=== PATIENT | female | born 1995 | race African-American/Black ===

== ENCOUNTER 2016-10-17 19:58 | Emergency (ER) | payer MEDICAID ==
[~2016-10-17] VITALS: Ht 167.6 cm; Wt 77.0 kg
[~2016-10-17 19:58] MED LIST: PNV1TABL7
[2016-10-18 02:49] VITALS: BP 120/79
== END 2016-10-18 02:52 | disposition home or self-care (01) ==
LOC: ER 19:58
DX: S30.0XXA Contusion of lower back and pelvis, initial encounter (principal); S76.012A Strain of muscle, fascia and tendon of left hip, initial encounter; S76.011A Strain of muscle, fascia and tendon of right hip, initial encounter; M25.562 Pain in left knee; V43.62XA Car passenger injured in collision with other type car in traffic accident, initial encounter; Y93.89 Activity, other specified; Y92.415 Exit ramp or entrance ramp of street or highway as the place of occurrence of the external cause; Z88.8 Allergy status to other drugs, medicaments and biological substances
CPT/HCPCS: 72100; 73521; 81025; 99284

== ENCOUNTER 2016-11-29 08:54 | Emergency (ER) | payer MEDICAID ==
[~2016-11-29] VITALS: Ht 170.2 cm; Wt 75.0 kg
[2016-11-29 10:12] VITALS: BP 105/66
[2016-11-29 10:20] LABS: CLARITY URINE TURBID (CLEAR); COLOR URINE YELLOW (YELLOW); GLUCOSE URINE NEGATIVE (NEGATIVE); KETONES URINE NEGATIVE (NEGATIVE); LEUKOCYTE ESTERASE URINE 3+ (NEGATIVE); NITRITE URINE NEGATIVE (NEGATIVE); OCCULT BLOOD URINE 2+ (NEGATIVE); PH URINE 6.5 (4.5-8.0); PROTEIN URINE 1+ (NEGATIVE); SPECIFIC GRAVITY URINE 1.013 (1.005-1.030)
[2016-11-29] MEDS ORDERED: CEFTRIAXONE SODIUM 250 MG/VIAL IM ONE (11:30)
[2016-11-29] MEDS ORDERED: LIDOCAINE HCL 1% 20ML VIAL (Pyxis) INJ INFIL ONE (11:45)
[2016-12-01 04:17] LABS: CHLAMYDIA TRACHOMATIS NAA Negative (Negative); NEISSERIA GONORRHOEAE NAA Negative (Negative)
== END 2016-11-29 12:20 | disposition home or self-care (01) ==
LOC: ER 09:22
DX: N73.9 Female pelvic inflammatory disease, unspecified (principal); F12.10 Cannabis abuse, uncomplicated; Z98.890 Other specified postprocedural states; Z88.8 Allergy status to other drugs, medicaments and biological substances
CPT/HCPCS: 81001; 81025; 87210; 87491; 87591; 96372; 99284; J0696; J3490; Z7610

== ENCOUNTER 2018-12-18 15:53 | Emergency (ER) | payer MEDICARE, MEDICAID ==
[~2018-12-18] VITALS: Ht 165.1 cm; Wt 80.0 kg
[2018-12-18 17:59] LABS: BASOPHILS % 0.6 % (0.0-2.0); EOSINOPHILS % 2.8 % (0.0-5.0); HEMATOCRIT. 35.7 % (36.0-48.0); HEMOGLOBIN. 11.9 g/dL (12.0-16.0); LYMPHOCYTES % 28.7 % (20.0-50.0); MEAN CORPUSCULAR HEMOGLOBIN 31.6 pg (28.0-32.0); MEAN CORPUSCULAR VOLUME 94.4 fL (81.0-99.0); MEAN PLATELET VOLUME 9.8 fl (7.4-10.4); MONOCYTES % 7.9 % (2.0-8.0); PLATELET 190 x1000/uL (130-400); RED BLOOD CELL COUNT 3.78 mill/uL (4.2-5.4); RED CELL DISTRIBUTION WIDTH 12.9 % (11.6-14.6)
[2018-12-18 18:02] LABS: CHLORIDE 107 mEq/L (98-107)
[2018-12-18 18:10] LABS: CLARITY URINE CLEAR (CLEAR); COLOR URINE YELLOW (YELLOW); KETONES URINE NEGATIVE (NEGATIVE); LEUKOCYTE ESTERASE URINE NEGATIVE (NEGATIVE); NITRITE URINE NEGATIVE (NEGATIVE); OCCULT BLOOD URINE NEGATIVE (NEGATIVE); PH URINE 6.5 (4.5-8.0); PROTEIN URINE NEGATIVE (NEGATIVE); SPECIFIC GRAVITY URINE 1.011 (1.005-1.030); UROBILINOGEN URINE 0.2 E.U./dL (0.2-1.0)
[2018-12-18 18:25] LABS: B-HCG QUANTITATIVE 40041 mIU/mL (<3)
[2018-12-18 19:06] VITALS: BP 98/60
== END 2018-12-19 06:14 | disposition home or self-care (01) ==
LOC: ER 15:53
DX: O20.0 Threatened abortion (principal); O26.891 Other specified pregnancy related conditions, first trimester; N93.9 Abnormal uterine and vaginal bleeding, unspecified; Z3A.01 Less than 8 weeks gestation of pregnancy; Z88.8 Allergy status to other drugs, medicaments and biological substances
CPT/HCPCS: 36415; 76801; 81003; 82962; 84702; 86850; 86900; 99284

== ENCOUNTER 2019-02-07 03:53 | Emergency (ER) | payer MEDICARE, MEDICAID ==
[~2019-02-07] VITALS: Ht 165.1 cm; Wt 79.0 kg
[2019-02-07] MEDS ORDERED: DIPHENHYDRAMINE 25MG CAPSULE PO ONE (05:15)
[2019-02-07 05:37] LABS: BASOPHILS % 0.4 % (0.0-2.0); EOSINOPHILS % 2.4 % (0.0-5.0); HEMATOCRIT. 33.5 % (36.0-48.0); HEMOGLOBIN. 11.9 g/dL (12.0-16.0); LYMPHOCYTES % 24.9 % (20.0-50.0); MEAN CORPUSCULAR HEMOGLOBIN 32.6 pg (28.0-32.0); MEAN CORPUSCULAR VOLUME 91.8 fL (81.0-99.0); MEAN PLATELET VOLUME 9.7 fl (7.4-10.4); MONOCYTES % 6.4 % (2.0-8.0); NEUTROPHILS % 65.9 % (40.0-76.0); PLATELET 187 x1000/uL (130-400); RED BLOOD CELL COUNT 3.65 mill/uL (4.2-5.4); RED CELL DISTRIBUTION WIDTH 12.3 % (11.6-14.6)
[2019-02-07 05:42] LABS: CLARITY URINE CLEAR (CLEAR); COLOR URINE YELLOW (YELLOW); KETONES URINE 2+ (NEGATIVE); LEUKOCYTE ESTERASE URINE NEGATIVE (NEGATIVE); NITRITE URINE NEGATIVE (NEGATIVE); OCCULT BLOOD URINE NEGATIVE (NEGATIVE); PROTEIN URINE NEGATIVE (NEGATIVE)
[2019-02-07 06:07] LABS: CHLORIDE 104 mEq/L (98-107)
[2019-02-07 06:46] VITALS: BP 109/59
[2019-02-07] MEDS ORDERED: POTASSIUM CHLORIDE 20MEQ TABLET SR PO ONE (07:00)
== END 2019-02-07 07:16 | disposition home or self-care (01) ==
LOC: ER 03:53
DX: O26.892 Other specified pregnancy related conditions, second trimester (principal); L29.9 Pruritus, unspecified; E11.9 Type 2 diabetes mellitus without complications; Z3A.14 14 weeks gestation of pregnancy; Z88.8 Allergy status to other drugs, medicaments and biological substances; Z98.890 Other specified postprocedural states
CPT/HCPCS: 36415; 76801; 80053; 81003; 81025; 85025; 99283; Q0163

== ENCOUNTER 2019-02-24 18:39 | Emergency (ER) | payer MEDICARE ==
[~2019-02-24] VITALS: Ht 167.6 cm; Wt 86.0 kg
[2019-02-24 18:42] VITALS: BP 122/64
[2019-07-24] MEDS ORDERED: IBUP-2030 PO (03:53)
== END 2019-02-25 01:12 | disposition left against medical advice (07) ==
LOC: ER 18:39
DX: Z53.21 Procedure and treatment not carried out due to patient leaving prior to being seen by health care provider (principal)

== ENCOUNTER 2019-03-03 04:15 | Emergency (ER) | payer MEDICARE, MEDICAID ==
[~2019-03-03] VITALS: Ht 165.1 cm; Wt 82.0 kg
[2019-03-03 04:31] VITALS: BP 118/76
== END 2019-03-03 07:06 | disposition left against medical advice (07) ==
LOC: ER 04:15
DX: O46.92 Antepartum hemorrhage, unspecified, second trimester (principal); Z53.21 Procedure and treatment not carried out due to patient leaving prior to being seen by health care provider; Z3A.18 18 weeks gestation of pregnancy

== ENCOUNTER 2019-04-13 11:38 | Observation (INO) | payer MEDICARE, MEDICAID ==
[~2019-04-13] VITALS: Ht 165.1 cm; Wt 86.2 kg
[2019-04-13] MEDS ORDERED: RHO(D) IMMUNE GLOBULIN 300 MCG/SYR IM ONE (13:45)
[2019-04-13 14:21] LABS: CLARITY URINE CLOUDY (CLEAR); COLOR URINE YELLOW (YELLOW); KETONES URINE NEGATIVE (NEGATIVE); LEUKOCYTE ESTERASE URINE 2+ (NEGATIVE); NITRITE URINE NEGATIVE (NEGATIVE); OCCULT BLOOD URINE NEGATIVE (NEGATIVE); PH URINE 7.5 (4.5-8.0); PROTEIN URINE NEGATIVE (NEGATIVE); SPECIFIC GRAVITY URINE 1.006 (1.005-1.030); UROBILINOGEN URINE 0.2 E.U./dL (0.2-1.0)
[2019-04-13 14:27] LABS: BASOPHILS % 0.3 % (0.0-2.0); EOSINOPHILS % 1.5 % (0.0-5.0); HEMATOCRIT. 32.2 % (36.0-48.0); LYMPHOCYTES % 22.9 % (20.0-50.0); MEAN CORPUSCULAR HEMOGLOBIN 32.3 pg (28.0-32.0); MEAN CORPUSCULAR VOLUME 94.3 fL (81.0-99.0); MEAN PLATELET VOLUME 10.2 fl (7.4-10.4); MONOCYTES % 6.3 % (2.0-8.0); PLATELET 160 x1000/uL (130-400); RED BLOOD CELL COUNT 3.41 mill/uL (4.2-5.4); RED CELL DISTRIBUTION WIDTH 13.4 % (11.6-14.6)
[2019-04-13 14:33] LABS: INR 0.9; PARTIAL THROMBOPLASTIN TIME 25.4 sec (23.4-31.0); PROTHROMBIN TIME 9.4 sec (9.6-11.0)
[2019-04-13 14:37] LABS: *BARBITURATES SCREEN URINE NEGATIVE (NEGATIVE)
[2019-04-13 14:38] LABS: *BENZODIAZEPINES SCREEN URINE NEGATIVE (NEGATIVE); *COCAINE SCREEN URINE NEGATIVE (NEGATIVE); CANNABINOID URINE SCREEN NEGATIVE (NEGATIVE); METHADONE URINE SCREEN NEGATIVE (NEGATIVE); OPIATES URINE SCREEN NEGATIVE (NEGATIVE); PHENCYCLIDINE URINE SCREEN NEGATIVE (NEGATIVE)
[2019-04-13 14:49] LABS: *AMPHETAMINES SCREEN URINE PRESUMTIVE POSITIVE (NEGATIVE)
[2019-04-13] MEDS ORDERED: FLUCONAZOLE 150MG TABLET PO SCH (15:00)
[2019-04-13 15:07] LABS: HEPATITIS B SURFACE ANTIGEN NEGATIVE
== END 2019-04-13 15:45 | disposition home or self-care (01) ==
LOC: 8 EST LDRP 11:38
PROVIDERS: ADMIT Obstetrics & Gynecology; ATTEND Obstetrics & Gynecology
DX: O36.8120 Decreased fetal movements, second trimester, not applicable or unspecified (principal); Z3A.25 25 weeks gestation of pregnancy
CPT/HCPCS: 36415; 76805; 80305; 80307; 81003; 85025; 85610; 85730; 86592; 86703; 86762; 86850; 86900; 86901; 87070; 87340; 99281; G0378; J8499

== ENCOUNTER 2019-07-02 21:56 | Observation (INO) | payer MEDICARE, MEDICAID ==
[~2019-07-02] VITALS: Ht 165.1 cm; Wt 96.2 kg
[2019-07-02] MEDS ORDERED: FURO20TA4 MT (23:03)
[2019-07-02] MEDS ORDERED: DIPH25CA83 PO (23:03)
== END 2019-07-02 23:58 | disposition home or self-care (01) ==
LOC: INTOOBSV 21:56 → 8 EST LDRP 21:56
PROVIDERS: ADMIT Obstetrics & Gynecology; ATTEND Obstetrics & Gynecology
DX: O62.9 Abnormality of forces of labor, unspecified (principal); O60.03 Preterm labor without delivery, third trimester; Z3A.35 35 weeks gestation of pregnancy
CPT/HCPCS: 99281; G0378

== ENCOUNTER 2019-07-05 05:38 | Observation (INO) | payer MEDICARE, MEDICAID ==
[~2019-07-05] VITALS: Ht 165.1 cm; Wt 113.4 kg
[~2019-07-05 05:38] MED LIST changes: +DIPH25CA83 PO
[2019-07-05] MEDS ORDERED: TERBUTALINE SULFATE 1MG/ML VIAL SUBCUT PRN (06:45)
[2019-07-05] MEDS ORDERED: LACTATED RINGERS 1,000 ML IV SCH (06:45)
[2019-07-05 07:28] LABS: *BARBITURATES SCREEN URINE NEGATIVE (NEGATIVE)
[2019-07-05 07:29] LABS: *BENZODIAZEPINES SCREEN URINE NEGATIVE (NEGATIVE); *COCAINE SCREEN URINE NEGATIVE (NEGATIVE); CANNABINOID URINE SCREEN NEGATIVE (NEGATIVE); METHADONE URINE SCREEN NEGATIVE (NEGATIVE); OPIATES URINE SCREEN NEGATIVE (NEGATIVE); PHENCYCLIDINE URINE SCREEN NEGATIVE (NEGATIVE)
[2019-07-05 07:32] LABS: *AMPHETAMINES SCREEN URINE PRESUMTIVE POSITIVE (NEGATIVE)
[2019-07-09 13:06] LABS: AMPHETAMINE CONF URINE Positive (.)
== END 2019-07-05 08:04 | disposition home or self-care (01) ==
LOC: 8 EST LDRP 05:38 → UNDOADMOB 05:38
PROVIDERS: ADMIT Obstetrics & Gynecology; ATTEND Obstetrics & Gynecology
DX: O62.9 Abnormality of forces of labor, unspecified (principal); Z3A.35 35 weeks gestation of pregnancy; Z79.899 Other long term (current) drug therapy
CPT/HCPCS: 80305; 80307; 96372; 99281; G0378; J3105; 96360

== ENCOUNTER 2019-07-22 09:13 | Inpatient (IN) | payer MEDICARE, MEDICAID ==
[~2019-07-22] VITALS: Ht 165.1 cm; Wt 95.7 kg
[2019-07-22] MEDS ORDERED: LIDOCAINE HCL 2%/EPINEPHRINE 1:100,000 20 ML VIAL INFIL ONE (10:00)
[2019-07-22] MEDS ORDERED: LIDOCAINE HCL 1% 20ML VIAL (Pyxis) INJ INFIL SCH (12:00)
[2019-07-22] MEDS ORDERED: CARBOPROST TROMETHAMINE 250 MCG/ML AMPUL IM PRN (12:00)
[2019-07-22] MEDS ORDERED: NALOXONE HCL 0.4 MG/ML 1ML VIAL IM PRN (12:00)
[2019-07-22] MEDS ORDERED: METHYLERGONOVINE MALEATE 0.2 MG/ML IM PRN (12:00)
[2019-07-22] MEDS ORDERED: LACTATED RINGERS 1,000 ML IV SCH (13:00)
[2019-07-22] MEDS ORDERED: DEXT 5%/LR + PITOCIN 20UNITS/L 1,000 ML IV SCH ×2 (13:00→20:19)
[2019-07-22] MEDS: MISOPROSTOL 100MCG TABLET VG PRN ×2 (13:14→17:03)
[2019-07-22 15:21] LABS: INR 0.9; PARTIAL THROMBOPLASTIN TIME 28.7 sec (23.4-31.0); PROTHROMBIN TIME 9.4 sec (9.6-11.0)
[2019-07-22] MEDS ORDERED: BUTORPHANOL TARTRATE 2 MG/ML VIAL IM PRN (16:45)
[2019-07-22 17:08] LABS: BASOPHILS % 0.4 % (0.0-2.0); HEMATOCRIT. 34.7 % (36.0-48.0); HEMOGLOBIN. 11.7 g/dL (12.0-16.0); LYMPHOCYTES % 23.7 % (20.0-50.0); MEAN CORPUSCULAR HEMOGLOBIN 30.6 pg (28.0-32.0); MEAN CORPUSCULAR VOLUME 90.5 fL (81.0-99.0); MEAN PLATELET VOLUME 10.6 fl (7.4-10.4); MONOCYTES % 7.7 % (2.0-8.0); NEUTROPHILS % 67.2 % (40.0-76.0); PLATELET 195 x1000/uL (130-400); RED BLOOD CELL COUNT 3.83 mill/uL (4.2-5.4); RED CELL DISTRIBUTION WIDTH 14.2 % (11.6-14.6)
[2019-07-22 17:58] LABS: CLARITY URINE CLOUDY (CLEAR); COLOR URINE YELLOW (YELLOW); KETONES URINE TRACE (NEGATIVE); LEUKOCYTE ESTERASE URINE 2+ (NEGATIVE); NITRITE URINE NEGATIVE (NEGATIVE); OCCULT BLOOD URINE NEGATIVE (NEGATIVE); PROTEIN URINE TRACE (NEGATIVE); SPECIFIC GRAVITY URINE 1.019 (1.005-1.030)
[2019-07-22] MEDS ORDERED: ROPIVACAINE HCL/PF EPIDURAL 200 ML EPI SCH (18:30)
[2019-07-22 18:44] LABS: HEPATITIS B SURFACE ANTIGEN NEGATIVE
[2019-07-22 18:46] LABS: *AMPHETAMINES SCREEN URINE NEGATIVE (NEGATIVE); *BARBITURATES SCREEN URINE NEGATIVE (NEGATIVE); *BENZODIAZEPINES SCREEN URINE NEGATIVE (NEGATIVE); *COCAINE SCREEN URINE NEGATIVE (NEGATIVE)
[2019-07-22 18:47] LABS: CANNABINOID URINE SCREEN NEGATIVE (NEGATIVE); METHADONE URINE SCREEN NEGATIVE (NEGATIVE); OPIATES URINE SCREEN NEGATIVE (NEGATIVE); PHENCYCLIDINE URINE SCREEN NEGATIVE (NEGATIVE)
[2019-07-22] MEDS ORDERED: IBUPROFEN 400MG TABLET PO PRN (20:30)
[2019-07-22] MEDS ORDERED: BISACODYL 10MG SUPP PR PRN (20:30)
[2019-07-22] MEDS ORDERED: RHO(D) IMMUNE GLOBULIN 300 MCG/SYR IM PRN (20:30)
[2019-07-22] MEDS ORDERED: IBUPROFEN 800MG TABLET PO PRN (20:30)
[2019-07-22] MEDS ORDERED: ACETAMINOPHEN WITH CODEINE 300/30MG TABLET PO PRN (20:30)
[2019-07-22] MEDS ORDERED: HEMORRHOIDAL SUPP PR PRN (20:30)
[2019-07-22] MEDS ORDERED: DIPHENHYDRAMINE 25MG CAPSULE PO PRN (20:30)
[2019-07-22] MEDS ORDERED: BENZOCAINE/LANOLIN/ALOE VERA SPRAY TOP PRN (20:30)
[2019-07-22] MEDS ORDERED: GLYCERIN/WITCH HAZEL LEAF MEDICATED PAD TOP PRN (20:30)
[2019-07-22] MEDS ORDERED: LANOLIN OINT 7GM TUBE TOP PRN (20:30)
[2019-07-22] MEDS ORDERED: DOCUSATE SODIUM 100MG CAPSULE PO SCH (21:00)
[2019-07-22 22:00] VITALS: BP 115/82
[2019-07-23 04:00] VITALS: BP 104/66
[2019-07-23] MEDS: FERROUS SULFATE 325MG TABLET PO SCH ×3 (07:30→17:30)
[2019-07-23 08:00] VITALS: BP 125/74
[2019-07-23] MEDS: PRENATAL VIT/FE FUMARATE/FA TABLET PO SCH (08:19)
[2019-07-23] MEDS: MAGNESIUM/ALUMINUM HYDROXIDE/SIMETHICONE 30ML UDC PO SCH ×3 (08:19→20:58)
[2019-07-23 16:00] VITALS: BP 111/81
[2019-07-23 18:29] LABS: BASOPHILS % 0.8 % (0.0-2.0); EOSINOPHILS % 1.2 % (0.0-5.0); HEMATOCRIT. 35.5 % (36.0-48.0); HEMOGLOBIN. 12.3 g/dL (12.0-16.0); LYMPHOCYTES % 25.8 % (20.0-50.0); MEAN CORPUSCULAR HEMOGLOBIN 31.3 pg (28.0-32.0); MEAN CORPUSCULAR VOLUME 90.5 fL (81.0-99.0); MEAN PLATELET VOLUME 10.3 fl (7.4-10.4); MONOCYTES % 6.5 % (2.0-8.0); NEUTROPHILS % 65.7 % (40.0-76.0); PLATELET 209 x1000/uL (130-400); RED BLOOD CELL COUNT 3.92 mill/uL (4.2-5.4); RED CELL DISTRIBUTION WIDTH 14.7 % (11.6-14.6)
[2019-07-23 19:30] VITALS: BP 111/80
[2019-07-24] VITALS: BP 111/83
[2019-07-24] MEDS ORDERED: IBUP-2030 PO (03:53)
[2019-07-24 04:00] VITALS: BP 118/76
[2019-07-24] MEDS: MAGNESIUM/ALUMINUM HYDROXIDE/SIMETHICONE 30ML UDC PO SCH (07:30)
[2019-07-24] MEDS: FERROUS SULFATE 325MG TABLET PO SCH (07:30)
[2019-07-24 08:00] VITALS: BP 108/73
[2019-07-24] MEDS: PRENATAL VIT/FE FUMARATE/FA TABLET PO SCH (09:00)
== END 2019-07-24 10:45 | disposition home or self-care (01) | DRG 806 ==
LOC: OBSVTOIN 09:13 → 8 EST LDRP 09:13 → 8EST 23:41
PROVIDERS: ADMIT Obstetrics & Gynecology; ATTEND Obstetrics & Gynecology
PROC: 10E0XZZ Delivery of Products of Conception, External Approach (ICD-10-PCS; principal; 2019-07-22)
DX: O99.02 Anemia complicating childbirth (principal); D62 Acute posthemorrhagic anemia; Z37.0 Single live birth; Z91.018 Allergy to other foods; Z88.1 Allergy status to other antibiotic agents; Z3A.39 39 weeks gestation of pregnancy
CPT/HCPCS: 36415; 76805; 80305; 81003; 85025; 86592; 86703; 86762; 86850; 86900; 87340; 99281; J0595; J2590; J2795; J3490; J7120

== ENCOUNTER 2022-10-02 10:33 | Emergency (ER) | payer MEDICAID, MEDICARE, OTHER ==
[~2022-10-02] VITALS: Ht 170.2 cm; Wt 64.0 kg
[~2022-10-02 10:33] MED LIST changes: -DIPH25CA83 PO; +IBUP-2030 PO; -PNV1TABL7
[2022-10-02 10:35] VITALS: O2SAT 98
[2022-10-02] MEDS ORDERED: ONDANSETRON HCL 4MG/2ML INJ IV STA (11:56)
[2022-10-02] MEDS ORDERED: MORPHINE SULFATE 4 MG/ML CPJ (NOT FOR IM USE) IV ONE (12:00)
[2022-10-02] MEDS ORDERED: KETOROLAC 60MG/2ML VIAL IM ONE (12:00)
[2022-10-02 12:43] LABS: BASOPHILS % 0.1 % (0.0-2.0); EOSINOPHILS % 2.2 % (0.0-5.0); HEMATOCRIT. 40.7 % (36.0-48.0); HEMOGLOBIN. 13.2 g/dL (12.0-16.0); LYMPHOCYTES % 16.5 % (20.0-50.0); MEAN CORPUSCULAR HEMOGLOBIN 30.1 pg (28.0-32.0); MEAN CORPUSCULAR HGB CONC 32.3 g/dL (31.0-37.0); MEAN CORPUSCULAR VOLUME 93.2 fL (81.0-99.0); MEAN PLATELET VOLUME 9.4 fl (7.4-10.4); MONOCYTES % 5.6 % (2.0-8.0); NEUTROPHILS % 75.6 % (40.0-76.0); PLATELET 285 x1000/uL (130-400); RED BLOOD CELL COUNT 4.37 mill/uL (4.2-5.4); RED CELL DISTRIBUTION WIDTH 13.9 % (11.6-14.6); WHITE BLOOD COUNT 7.8 x1000/uL (4.5-11.0)
[2022-10-02 12:51] LABS: CHLORIDE 105 mEq/L (98-107); INDEX HEMOLYSI 1 (1-3); INDEX ICTERIC 1 (1-4); INDEX LIPEMIC 1 (1-3); POTASSIUM 3.2 mEq/L (3.5-5.1); SODIUM 137 mEq/L (136-145)
[2022-10-02 12:58] LABS: HCG SCREEN NEGATIVE
[2022-10-02 13:00] LABS: ALANINE AMINOTRANSFERASE 22 IU/L (13-61); ALBUMIN 3.8 g/dL (3.4-5.0); ASPARTATE AMINOTRANSFERASE 14 IU/L (15-37); BILIRUBIN TOTAL 0.9 mg/dL (0.1-1.0); CALCIUM 8.8 mg/dL (8.5-10.1); CARBON DIOXIDE 27 mEq/L (21-32); CREATININE 0.8 mg/dL (0.6-1.3); GLUCOSE 131 mg/dL (70-105); PROTEIN TOTAL 7.8 g/dL (6.0-8.3); UREA NITROGEN BLOOD 15 mg/dL (7-21)
[2022-10-02 13:15] VITALS: BP 128/62; PULSE 80; RESP 15
[2022-10-02 13:23] LABS: CLARITY URINE TURBID (CLEAR); COLOR URINE DARK YELLOW (YELLOW); GLUCOSE URINE NEGATIVE (NEGATIVE); KETONES URINE 2+ (NEGATIVE); LEUKOCYTE ESTERASE URINE NEGATIVE (NEGATIVE); NITRITE URINE NEGATIVE (NEGATIVE); OCCULT BLOOD URINE NEGATIVE (NEGATIVE); PH URINE 5.5 (4.5-8.0); PROTEIN URINE 1+ (NEGATIVE); SPECIFIC GRAVITY URINE 1.035 (1.005-1.030)
[2022-10-02 13:25] LABS: RBC URINE 0-2 /hpf (0-2); SQUAMOUS EPITHELIAL CELL URINE 1+ /lpf (RARE/1+); YEAST URINE NONE SEEN
[2022-10-02 13:42] LABS: BACTERIA URINE 2+
[2022-10-02 13:43] LABS: AMORPHOUS SEDIMENT URINE 4+ /lpf
[2022-10-02 13:45] LABS: WBC URINE 0-2 /hpf (0-2)
== END 2022-10-02 13:35 | disposition left against medical advice (07) ==
LOC: ER 10:33
DX: R10.30 Lower abdominal pain, unspecified (principal); Z88.8 Allergy status to other drugs, medicaments and biological substances; Z91.018 Allergy to other foods
CPT/HCPCS: 80053; 81003; 84703; 83605; 85025; 86850; 86900; 86901; 36415; 96372; 99283; J1885; J2405; Z7610 ×2; J2270

== ENCOUNTER 2024-12-30 10:20 | Inpatient (IN) | payer OTHER ==
[~2024-12-30] VITALS: Ht 172.7 cm; Wt 80.7 kg
[2024-12-30 10:23] VITALS: O2SAT 98
[2024-12-30] MEDS ORDERED: LEVETIRACETAM 500MG PREMIX 100 ML IV ONE (10:30)
[2024-12-30] MEDS: LEVETIRACETAM 500MG PREMIX 100 ML IV ONE (10:45)
[2024-12-30] MEDS: LACTATED RINGERS 1,000 ML IV SCH (10:45)
[2024-12-30 11:09] LABS: BASOPHILS % 0.5 % (0.0-2.0); EOSINOPHILS % 3.8 % (0.0-5.0); HEMATOCRIT. 37.8 % (36.0-48.0); HEMOGLOBIN. 12.6 g/dL (12.0-16.0); LYMPHOCYTES % 31.5 % (20.0-50.0); MEAN PLATELET VOLUME 9.8 fl (7.4-10.4); MONOCYTES % 10.1 % (2.0-8.0); NEUTROPHILS % 54.1 % (40.0-76.0); PLATELET 196 x1000/uL (130-400); RED BLOOD CELL COUNT 4.24 mill/uL (4.2-5.4); RED CELL DISTRIBUTION WIDTH 12.9 % (11.6-14.6)
[2024-12-30 11:22] LABS: CREATININE 0.8 mg/dL (0.6-1.0); UREA NITROGEN BLOOD 11 mg/dL (9-23)
[2024-12-30 11:24] LABS: ASPARTATE AMINOTRANSFERASE 28 IU/L (<34); BILIRUBIN TOTAL 0.8 mg/dL (0.1-1.0); PROTEIN TOTAL 7.3 g/dL (6.0-8.3)
[2024-12-30 11:27] LABS: HCG SCREEN NEGATIVE
[2024-12-30] MEDS: LEVETIRACETAM 500MG PREMIX 100 ML IV NR (11:34)
[2024-12-30] MEDS ORDERED: ONDANSETRON HCL 4MG/2ML INJ IV PRN (13:30)
[2024-12-30 14:27] VITALS: BP 97/57; PULSE 78; RESP 14; TEMP 36.4; O2SAT 100
[2024-12-30 15:00] VITALS: BP 97/57; PULSE 78; RESP 16; TEMP 36.8072
[2024-12-30 16:00] VITALS: BP 96/57; PULSE 82; RESP 14; TEMP 37.2; O2SAT 97
[2024-12-30 16:15] LABS: CLARITY URINE CLEAR (CLEAR); COLOR URINE YELLOW (YELLOW); GLUCOSE URINE NEGATIVE (NEGATIVE); KETONES URINE TRACE (NEGATIVE); LEUKOCYTE ESTERASE URINE NEGATIVE (NEGATIVE); NITRITE URINE NEGATIVE (NEGATIVE); OCCULT BLOOD URINE NEGATIVE (NEGATIVE); PH URINE 7.5 (4.5-8.0); PROTEIN URINE NEGATIVE (NEGATIVE); SPECIFIC GRAVITY URINE 1.012 (1.005-1.030); UROBILINOGEN URINE 0.2 E.U./dL (0.2-1.0)
[2024-12-30 20:00] VITALS: BP 111/48; PULSE 81; RESP 17; TEMP 36.6; O2SAT 97
[2024-12-30] MEDS ORDERED: LEVETIRACETAM 500MG in NACL 100ML PREMIX IV SCH (21:00)
[2024-12-30] MEDS: LEVETIRACETAM 500MG PREMIX 100ML IV SCH (21:26)
[2024-12-30] MEDS: ACETAMINOPHEN 325MG TABLET PO PRN (22:10)
[2024-12-31] VITALS: BP 105/67; PULSE 73; RESP 17; TEMP 36.8; O2SAT 93
[2024-12-31 04:00] VITALS: BP 102/64; PULSE 76; RESP 18; TEMP 36.6; O2SAT 93
[2024-12-31 06:54] LABS: BASOPHILS % 0.3 % (0.0-2.0); EOSINOPHILS % 4.0 % (0.0-5.0); HEMATOCRIT. 38.7 % (36.0-48.0); HEMOGLOBIN. 12.6 g/dL (12.0-16.0); LYMPHOCYTES % 35.5 % (20.0-50.0); MEAN PLATELET VOLUME 9.9 fl (7.4-10.4); MONOCYTES % 10.7 % (2.0-8.0); NEUTROPHILS % 49.5 % (40.0-76.0); PLATELET 181 x1000/uL (130-400); RED BLOOD CELL COUNT 4.32 mill/uL (4.2-5.4); RED CELL DISTRIBUTION WIDTH 13.0 % (11.6-14.6)
[2024-12-31 07:10] LABS: CREATININE 0.6 mg/dL (0.6-1.0); UREA NITROGEN BLOOD 9 mg/dL (9-23)
[2024-12-31 08:00] VITALS: PULSE 83; RESP 18; TEMP 36.3; O2SAT 99
[2024-12-31] MEDS: LORAZEPAM 2MG/ML UD SYRINGE IV PRN (08:24)
[2024-12-31 09:00] LABS: *AMPHETAMINES SCREEN URINE NEGATIVE (NEGATIVE)
[2024-12-31 09:03] LABS: *BARBITURATES SCREEN URINE NEGATIVE (NEGATIVE); *BENZODIAZEPINES SCREEN URINE PRESUMPTIVE POSITIVE (NEGATIVE); *COCAINE SCREEN URINE NEGATIVE (NEGATIVE); CANNABINOID URINE SCREEN PRESUMPTIVE POSITIVE (NEGATIVE); ECSTASY MDMA SCREEN URINE NEGATIVE (NEGATIVE); METHADONE URINE SCREEN NEGATIVE (NEGATIVE); OPIATES URINE SCREEN NEGATIVE (NEGATIVE); PHENCYCLIDINE URINE SCREEN NEGATIVE (NEGATIVE)
[2024-12-31] MEDS: PANTOPRAZOLE SODIUM 40 MG/VIAL IV SCH (09:48)
[2024-12-31] MEDS ORDERED: KEPP500 MT (10:23)
[2024-12-31 12:00] VITALS: PULSE 85; RESP 18; TEMP 36.1; O2SAT 99
[2024-12-31 16:00] VITALS: BP 101/63; PULSE 80; RESP 18; TEMP 36.6; O2SAT 95
[2024-12-31 20:00] VITALS: BP 99/60; PULSE 71; RESP 18; TEMP 36.6; O2SAT 97
[2025-01-01] VITALS: BP 108/58; PULSE 95; RESP 18; TEMP 37.1; O2SAT 98
[2025-01-01 04:00] VITALS: BP 97/54; PULSE 68; RESP 18; TEMP 36.6; O2SAT 96
[2025-01-01 08:00] VITALS: BP 88/44; PULSE 93; RESP 18; TEMP 36.8; O2SAT 99
[2025-01-01] MEDS: SODIUM CHLORIDE 0.9% 500 ML IV ONE (08:47)
[2025-01-01 12:00] VITALS: BP 98/55; PULSE 81; RESP 18; TEMP 36.4; O2SAT 97
[2025-01-01 16:00] VITALS: BP_SYST 86; PULSE 86; RESP 19; TEMP 36.5; O2SAT 99
[2025-01-01] MEDS: MIDODRINE HCL 5MG TABLET PO SCH (16:53)
[2025-01-01 20:00] VITALS: BP 105/55; PULSE 91; RESP 20; TEMP 36.4; O2SAT 97
[2025-01-02] VITALS: BP 101/51; PULSE 89; RESP 18; TEMP 36.4; O2SAT 99
[2025-01-02 04:00] VITALS: BP 118/73; PULSE 71; RESP 20; TEMP 36.3; O2SAT 98
[2025-01-02 08:00] VITALS: BP 117/58; PULSE 80; RESP 15; TEMP 36.5; O2SAT 94
[2025-01-02 12:00] VITALS: BP 107/59; PULSE 91; RESP 18; TEMP 36.6; O2SAT 92
[2025-01-02 16:00] VITALS: BP 93/55; PULSE 94; RESP 16; TEMP 36.8; O2SAT 97
[2025-01-02 20:00] VITALS: BP 90/45; PULSE 86; RESP 17; TEMP 36.4; O2SAT 98
[2025-01-03] VITALS: BP 103/58; PULSE 89; RESP 18; TEMP 36.5; O2SAT 98
[2025-01-03 04:00] VITALS: BP 96/57; PULSE 75; RESP 19; TEMP 37.3; O2SAT 97
[2025-01-03 08:00] VITALS: BP 112/88; PULSE 87; RESP 16; TEMP 36.6; O2SAT 93
[2025-01-03 12:00] VITALS: BP 98/53; PULSE 88; RESP 18; TEMP 36.2; O2SAT 95
[2025-01-03 16:00] VITALS: BP 88/44; PULSE 85; RESP 18; TEMP 36.4; O2SAT 96
[2025-01-03 20:00] VITALS: BP 102/50; PULSE 86; RESP 17; TEMP 36.7; O2SAT 97
[2025-01-03] MEDS: ZOLPIDEM TARTRATE 5MG TABLET PO PRN (21:05)
[2025-01-03] MEDS: LEVETIRACETAM 500MG TABLET PO SCH (21:05)
[2025-01-04] VITALS: BP 111/51; PULSE 85; RESP 17; TEMP 36.9; O2SAT 95
[2025-01-04 04:00] VITALS: BP 100/49; PULSE 85; RESP 17; TEMP 36.5; O2SAT 97
[2025-01-04 08:00] VITALS: BP 109/52; PULSE 86; RESP 18; TEMP 36.5; O2SAT 98
[2025-01-04 12:00] VITALS: BP 101/58; PULSE 84; RESP 17; TEMP 36.4; O2SAT 95
[2025-01-04 16:00] VITALS: BP 105/80; PULSE 84; RESP 18; TEMP 36.4; O2SAT 97
[2025-01-04] MEDS: LORAZEPAM 2MG/ML UD SYRINGE IV PRN (16:29)
[2025-01-04 20:00] VITALS: BP 108/76; PULSE 87; RESP 18; TEMP 36; O2SAT 100
[2025-01-05] VITALS: BP 110/78; PULSE 84; RESP 18; TEMP 36.1; O2SAT 100
[2025-01-05 04:00] VITALS: BP 111/80; PULSE 86; RESP 18; TEMP 35.6; O2SAT 98
[2025-01-05 08:00] VITALS: BP 111/58; PULSE 88; RESP 20; TEMP 36.4; O2SAT 100
[2025-01-05 12:00] VITALS: BP 99/66; PULSE 79; RESP 20; TEMP 35.2; O2SAT 100
[2025-01-05 14:28] VITALS: BP 99/66; PULSE 79; RESP 20; TEMP 97.8
[2025-01-05 16:00] VITALS: BP 94/52; PULSE 83; RESP 20; TEMP 36.2; O2SAT 100
[2025-01-06 08:00] VITALS: BP 100/53; PULSE 69; RESP 18; TEMP 36.3; O2SAT 98
[2025-01-06] MEDS: HALOPERIDOL LACTATE 5MG/ML VIAL IM PRN (11:38)
[2025-01-06 12:00] VITALS: BP 101/56; O2SAT 100
[2025-01-06] MEDS: SODIUM CHLORIDE 0.9% 500 ML IV ONE (13:57)
[2025-01-06] MEDS ORDERED: HALOPERIDOL LACTATE 5MG/ML VIAL IM PRN (17:00)
[2025-01-06] MEDS ORDERED: LORAZEPAM 2MG/ML UD SYRINGE IV PRN (17:45)
[2025-01-06] MEDS ORDERED: LORAZEPAM 1MG TABLET PO PRN (22:45)
[2025-01-07 09:20] VITALS: BP 92/52; PULSE 89; RESP 16; TEMP 36.3; O2SAT 96
[2025-01-07 10:00] VITALS: BP 97/52
[2025-01-07 12:49] VITALS: BP 97/52; PULSE 89; RESP 16; TEMP 97.4
== END 2025-01-07 13:26 | DRG 100 ==
LOC: ER 10:20 → 5WST 12:35 → ENRESERV 12:46 → 6EST 01-04 05:29 → 7EST 01-06 18:39
PROVIDERS: ADMIT Internal Medicine; ATTEND Internal Medicine
DX: G40.909 Epilepsy, unspecified, not intractable, without status epilepticus (principal); J96.01 Acute respiratory failure with hypoxia; F15.90 Other stimulant use, unspecified, uncomplicated; Z79.899 Other long term (current) drug therapy
CPT/HCPCS: 36415; 80048; 80053; 80305; 81003; 84703; 85025; 93005; 96365; 96366; 99291; A4606; J1630; J1953; J2060; J2470

== ENCOUNTER 2025-01-13 16:48 | Emergency (ER) | payer OTHER ==
[~2025-01-13] VITALS: Ht 172.7 cm; Wt 78.0 kg
[~2025-01-13 16:48] MED LIST changes: +KEPP500 MT
[2025-01-13 16:53] VITALS: BP 128/78; PULSE 100; RESP 16; TEMP 98.1; O2SAT 100
== END 2025-01-13 17:00 | disposition left against medical advice (07) ==
LOC: ER 16:48
DX: F91.9 Conduct disorder, unspecified (principal); Z53.21 Procedure and treatment not carried out due to patient leaving prior to being seen by health care provider
CPT/HCPCS: 99281